=== PATIENT | male | born 1995 | race Caucasian/White ===

== ENCOUNTER 2021-04-03 14:58 | Emergency (ER) | payer MEDICAID ==
[~2021-04-03] VITALS: Ht 180.3 cm; Wt 78.0 kg
[2021-04-03] MEDS ORDERED: TETANUS, DIPHTHERIA, PERTUSSIS VAC/PF 0.5ML (>7YR OLD) IM ONE (16:15)
[2021-04-03] MEDS ORDERED: BACITRACIN ZINC OINT UDPKT TOP ONE (16:15)
[2021-04-03] MEDS ORDERED: LIDOCAINE HCL/EPINEPHRINE 1%-EPI 1:100,000 20 ML VIAL INFIL ONE (16:15)
[2021-04-03] MEDS ORDERED: KETOROLAC 30MG/ML VIAL IM ONE (16:15)
[2021-04-03] MEDS ORDERED: IBUP-2029 PO (18:58)
[2021-04-03] MEDS ORDERED: HYDR-4001 PO (18:58)
[2021-04-03 19:36] VITALS: BP 136/69
== END 2021-04-03 19:37 | disposition home or self-care (01) ==
LOC: ER 15:58
DX: S51.811A Laceration without foreign body of right forearm, initial encounter (principal); W22.8XXA Striking against or struck by other objects, initial encounter; Y93.89 Activity, other specified; Y92.89 Other specified places as the place of occurrence of the external cause; Y99.8 Other external cause status
CPT/HCPCS: 12002; 73090; 73130; 90471; 90715; 99284; J1885; J3490; Z7610

== ENCOUNTER 2025-06-16 11:05 | Emergency (ER) | payer MEDICAID ==
[~2025-06-16] VITALS: Ht 167.6 cm; Wt 82.0 kg
[~2025-06-16 11:05] MED LIST: HYDR-4001 PO; IBUP-1455 PO
[2025-06-16 11:49] VITALS: O2SAT 100
[2025-06-16 12:14] LABS: BASOPHILS % 0.3 % (0.0-2.0); EOSINOPHILS % 2.1 % (0.0-5.0); HEMATOCRIT. 43.3 % (42.0-52.0); HEMOGLOBIN. 14.6 g/dL (14.0-18.0); LYMPHOCYTES % 30.8 % (20.0-50.0); MEAN PLATELET VOLUME 8.0 fl (7.4-10.4); MONOCYTES % 8.3 % (2.0-8.0); NEUTROPHILS % 58.5 % (40.0-76.0); PLATELET 220 x1000/uL (130-400); RED BLOOD CELL COUNT 5.02 mill/uL (4.7-6.1); RED CELL DISTRIBUTION WIDTH 13.2 % (11.6-14.6)
[2025-06-16 12:29] LABS: CREATININE 0.7 mg/dL (0.6-1.3); UREA NITROGEN BLOOD 6 mg/dL (9-23)
[2025-06-16 12:31] LABS: ASPARTATE AMINOTRANSFERASE 12 IU/L (<34); BILIRUBIN DIRECT 0.1 mg/dL (<=3.0); BILIRUBIN TOTAL 0.5 mg/dL (0.1-1.0); PROTEIN TOTAL 7.2 g/dL (6.0-8.3)
[2025-06-16 14:10] VITALS: BP 126/71; PULSE 60; RESP 14; TEMP 36.6; O2SAT 100
== END 2025-06-16 14:16 | disposition home or self-care (01) ==
LOC: ER 11:05
DX: R59.1 Generalized enlarged lymph nodes (principal); Z79.899 Other long term (current) drug therapy
CPT/HCPCS: 36415; 76857; 80048; 80076; 85025; 99284